=== PATIENT | male | born 2000 | race Caucasian/White ===

== ENCOUNTER 2022-11-07 20:12 | Emergency (ER) | payer BC ==
[~2022-11-07] VITALS: Ht 172.7 cm; Wt 80.7 kg
[2022-11-07 20:35] VITALS: BP 100/77
[2022-11-07 21:20] LABS: BASOPHILS % (AUTO) 0.3 % (0.0-2.0); EOSINOPHILS # (AUTO) 0.1 K/uL (0-0.4); EOSINOPHILS % (AUTO) 0.9 % (0.0-4.0); HEMATOCRIT 43.8 % (36-52); HEMOGLOBIN 15.1 g/dL (12.0-18.0); LYMPHOCYTES # (AUTO) 2.9 K/uL (2.0-11.5); LYMPHOCYTES % (AUTO) 33.3 % (20.5-51.1); MEAN CORPUSCULAR HEMOGLOBIN 31 pg (27-31); MEAN CORPUSCULAR HGB CONC 34 g/dL (33-37); MEAN CORPUSCULAR VOLUME 89.4 fL (80-94); MONOCYTES # (AUTO) 0.6 K/uL (0.8-1.0); MONOCYTES % (AUTO) 6.7 % (1.7-9.3); NEUTROPHILS # (AUTO) 5.1 K/uL (1.8-7.7); NEUTROPHILS % (AUTO) 58.8 % (42.2-75.2); PLATELET COUNT (AUTO) 358 K/uL (140-450); RED CELL DISTRIBUTION WIDTH 13.4 % (11.6-13.7); WHITE BLOOD COUNT (AUTO) 8.6 K/uL (4.8-10.8)
--- NOTE | 2022-11-07 21:20 | NUR ---
PT AMBULATE TO ROOM 5
--- NOTE | 2022-11-07 21:23 | NUR ---
22YR OLD MALE BIB SELF C/O CP X 1DAY. PT IS A&OX4 STATES CP BEEN ON AND OFF FOR 2MONS. TODAY IS WORSE. PT STATES HES BEEN TACHYCARDIAC. HR 99. PT DENIES SOB . ON BEDSIDE FIRER DIESEL LOCOMOTIVE. RESP EVEN AND UNLABORED. SP02 96% RA. HOB ELEVATED.' NKDA NO MED HX
[2022-11-07 21:33] LABS: ANION GAP 10.3 (8-16); CARBON DIOXIDE 29.5 mmol/L (21-32); CREATININE 0.9 mg/dL (0.6-1.3); POTASSIUM 3.8 mmol/L (3.5-5.1)
[2022-11-07] MEDS ORDERED: NACL 0.9% 1,000 ML IV ONE (21:35)
[2022-11-07] MEDS ORDERED: ASPIRIN 325 MG TAB PO ONE (22:55)
[2022-11-07 23:08] VITALS: BP 117/73
--- NOTE | 2022-11-07 23:08 | NUR ---
Patient discharged with v/s stable. Written and verbal after care instructions given and explained. Patient verbalized understanding. Ambulatory with steady gait. All questions addressed prior to discharge. Advised to follow up with PMD.
--- NOTE | 2022-11-07 23:17 | NUR ---
The patient's care was reviewed and supervised by Lexis Richter RN.
== END 2022-11-07 23:08 | disposition home or self-care (01) ==
LOC: MED 20:12
DX: R07.9 Chest pain, unspecified (principal); R00.0 Tachycardia, unspecified; I25.10 Atherosclerotic heart disease of native coronary artery without angina pectoris; Z79.899 Other long term (current) drug therapy
CPT/HCPCS: 36415; 71045; 80048; 84484; 85025; 85379; 93005; 96360; 99285; J7030

== ENCOUNTER 2022-11-21 13:20 | Emergency (ER) | payer BC ==
[~2022-11-21] VITALS: Ht 172.7 cm; Wt 78.0 kg
[2022-11-21 13:41] VITALS: BP 106/75
--- NOTE | 2022-11-21 13:45 | NUR ---
pt ambulatory to [facility] steady gait,.
[2022-11-21] MEDS ORDERED: IBUPROFEN 600 MG TAB PO ONE (14:05)
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
[2022-11-21] MEDS ORDERED: IBUP-2213 PO (15:07)
--- NOTE | 2022-11-21 15:36 | NUR ---
Patient discharged with v/s stable. Written and verbal after care instructions given and explained. Patient alert, oriented and verbalized understanding of instructions. Ambulatory with to home. All questions addressed prior to discharge. ID band removed. Patient advised to follow up with PMD. Rx of MOTRIN given. Patient educated on indication of medication including possible reaction and side effects. Opportunity to ask questions provided and answered.
== END 2022-11-21 20:09 | disposition home or self-care (01) ==
LOC: MED 13:20
DX: S46.812A Strain of other muscles, fascia and tendons at shoulder and upper arm level, left arm, initial encounter (principal); Z79.899 Other long term (current) drug therapy; V89.2XXA Person injured in unspecified motor-vehicle accident, traffic, initial encounter; Y93.89 Activity, other specified; Y92.89 Other specified places as the place of occurrence of the external cause; Y99.8 Other external cause status
CPT/HCPCS: 73030; 99283

== ENCOUNTER 2023-02-16 17:32 | Emergency (ER) | payer BC, OTHER ==
[~2023-02-16] VITALS: Ht 170.2 cm; Wt 81.6 kg
[~2023-02-16 17:32] MED LIST: IBUP-2213 PO
[2023-02-16 17:47] VITALS: BP 133/89; PULSE 80; RESP 18; TEMP 98.8; O2SAT 98
[2023-02-16 19:00] VITALS: BP 132/85; PULSE 82; RESP 18; TEMP 98.8; O2SAT 98
== END 2023-02-16 19:00 | disposition home or self-care (01) ==
LOC: MED 17:32
DX: L60.0 Ingrowing nail (principal); Z79.899 Other long term (current) drug therapy
CPT/HCPCS: 99281

== ENCOUNTER 2023-07-09 12:38 | Emergency (ER) | payer BC ==
[~2023-07-09] VITALS: Ht 170.2 cm; Wt 82.6 kg
[2023-07-09 12:39] VITALS: BP 112/70; PULSE 118; RESP 19; TEMP 98.7; O2SAT 98
[2023-07-09] MEDS ORDERED: OMEP40EC23 PO (14:24)
[2023-07-09] MEDS ORDERED: IBUP-2213 PO (14:24)
[2023-07-09] MEDS: KETOROLAC 60 MG/2 ML VIAL IM ONE (14:37)
== END 2023-07-09 14:48 | disposition home or self-care (01) ==
LOC: MED 12:38
DX: R10.13 Epigastric pain (principal); R19.7 Diarrhea, unspecified; I25.10 Atherosclerotic heart disease of native coronary artery without angina pectoris; Z79.899 Other long term (current) drug therapy
CPT/HCPCS: 71045; 93005; 96372; 99283; J1885